=== PATIENT | female | born 1950 ===

== ENCOUNTER 2018-02-23 10:47 | Emergency (ER) | payer SELFPAY ==
[2018-02-23 10:49] VITALS: BMI 27.4
[2018-02-23] MEDS ORDERED: Hydrogen Peroxide 3% Soln (480ml) TP ONE (11:19)
[2018-02-23] MEDS ORDERED: Piperacillin/Tazobact 3.375 gm Inj IVPB ONE (12:23)
[2018-02-23] MEDS ORDERED: Vancomycin 1 g Inj ONE (12:23)
[2018-02-23] MEDS: Piperacillin/Tazobact 3.375 GM in Sodium Chloride 0.9% 100 ML IVPB STA ×2 (12:26→14:13)
--- NOTE | 2018-02-23 12:30 | ED PDOC ---
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 is homeless and they were called by a store environmental control administrator where pt. was lying in front of. Pt. states she called the police as her R leg was hurting. Pt. has hx of RLE cellulitis with ulcer. Pt. is requesting Morphine. Denies fever, trauma, chest pain, SOB. Past Medical History Reviewed: Historical Data, Nursing Documentation, Vital Signs - Medical History PMH: Anemia, Anxiety, Bronchitis, Depression, Diabetes, HTN, Schizophrenia, Chronic Pain (chronic right leg ulcers/cellulitis) Denies: Arthritis, CHF, COPD, Hepatitis, HIV, Hypercholesterolemia, Hypothyroidism, Chronic Kidney Disease, Rheumatoid Arthritis, Seizures, Sexually Transmitted Disease - Family History Family History: States: No Known Family Hx - Immunization History Hx Tetanus Toxoid Vaccination: No Hx Influenza Vaccination: No Hx Pneumococcal Vaccination: No - Home Medications Home Medications: Ambulatory Orders Medication Instructions Recorded RX: Ammonium Lactate 12% 1 applic TOP TID PRN #1 bottle 08/11/17 [Lac-Hydrin 12% Lotion (225 g)] RX: Citalopram [celeXA] 5 mg PO DAILY #30 tab 08/11/17 RX: Docusate Sodium/Sennosides A 2 tab PO HS #30 tab 08/11/17 [Senokot S 50 MG-8.6 MG] RX: Ferrous Sulfate [Feosol] 325 mg PO BID #60 tab 08/11/17 RX: OLANZapine [Zyprexa] 2.5 mg PO DAILY #30 tab 08/11/17 Amoxicillin/Potassium Clav 1 each PO BID #20 tablet 02/23/18 [Augmentin 500-125 Tablet] - Allergies Allergies/Adverse Reactions: Allergies Allergy/AdvReac Type Severity Reaction Status Date / Time No Known Allergies Allergy Verified 07/27/17 08:34 Review of Systems ROS Statement: Except As Marked, All Systems Reviewed And Found Negative Musculoskeletal: Positive for: Leg Pain Physical Exam - Physical Exam Appears: Positive for: Well, Non-toxic, In Acute Distress Skin: Positive for: Normal Color, Warm. Negative for: Rash Eye Exam: Positive for: Normal appearance Cardiovascular/Chest: Positive for: Regular Rate, Rhythm Respiratory: Positive for: CNT, Normal Breath Sounds Pulses-Dorsalis Pedis (L): 2+ Pulses-Dorsalis Pedis (R): 2+ Gastrointestinal/Abdominal: Positive for: Normal Exam, Soft. Negative for: Tenderness Extremity: Positive for: Other (R calf with circumferential swelling maceration with ulceration and mild surorunding erythema - yellow discharge noted - foul smelling odor) Neurologic/Psych: Positive for: Alert, Oriented. Negative for: Aphasia, Facial Droop - Laboratory Results Result Diagrams: 02/23/18 14:23 02/23/18 14:23 - Progress ED Course And Treament: Labs, Zosyn IV, Vancomycin IV, ativan 1mg IV ordered. Unable to obtain IV access. PICC line insertion ordered. Pt. evaluated by [facility] pod[facility] resident, who spoke with Dr. Hawkins and cleared pt. from podiatry standpoint. Requests that pt. be prescribed Augmentin. Case d/w Dr. Ambriz who agrees with plan and care. States pt. can be dc'd after 1 PRBC's. Blood transfusion ordered. Hemoccult: negative Case d/w Dr. Ha who also agrees with plan disposition. Disposition - Clinical Impression Clinical Impression: Cellulitis of lower extremity, Anemia - Patient ED Disposition Is Patient to be Admitted: Transfer of Care (Signed out Tiffanie GRACE pending re- evaluation after blood transfusion) - Disposition Referrals: Podiatry Clinic [Outside] Disposition Time: 20:00 Condition: FAIR Additional Instructions: SEGUIR CON LA CLNICA DE PODIATRA DEANA SIMONSA, jordan por dejarnos cuidar de ti hoy. Russo proveedor fue Floresita Ambriz MD y usted fue tratado por LEG PAIN. La atencin mdica de emergencia que recibi hoy se dirigi a selam sntomas agudos. Si le recetaron algn medicamento, llnelo y tmelo segn las indicaciones. Los sntomas pueden tardar varios gibson en resolverse. Regrese al Departamento de Emergencias si selam sntomas empeoran, no mejoran o si tiene otros problemas. Comunquese con russo mdico o llame a ronald de los mdicos / clnicas a los que jason sido referido que figuran en el formulario de Informacin de visita al paciente que se incluye en russo paquete de franny. Lleve con usted a russo consulta de seguimiento toda la documentacin que recibi del franny junto con los medicamentos que est tomando. Nuestro tratamiento no puede reemplazar la atencin mdica continua por parte de un proveedor de atencin primaria fuera del departamento de emergencias. [place] por permitir que el equipo de [facility] sea parte de russo atencin hoy. Si le hicieron joseluis radiografa o joseluis tomografa computarizada: un radilogo revisar la lectura del ED si se necesita algn cambio en el tratamiento, nos pondremos en contacto con usted. Si tuvo un cultivo de krzysztof, orina o herida: los resultados tardarn varios gibson; si es necesario realizar algn cambio en el tratamiento, nos pondremos en contacto con usted. Si se realiz joseluis prueba de ITS: los resultados demorarn 48 horas. Por favor llame despus de 1 semana si no jason recibido joseluis respuesta. Prescriptions: Amoxicillin/Potassium Clav [Augmentin 500-125 Tablet] 1 each PO BID #20 tablet Instructions: Cellulitis and Erysipelas (Skin Infections), Anemia of Chronic Disease, Blood Transfusion Forms: [employer] ([place]ese) Print Language: SYRIAC
[2018-02-23] MEDS ORDERED: Lidocaine 1% Inj (20ml) ONE (13:42)
--- NOTE | 2018-02-23 14:08 | PCM.SURG1 ---
Surgeon's Initial Post Op Note - Surgeon's Notes Surgeon: Tre Newell MD Software Test Automation Engineer: NONE Type of Anesthesia: Local Pre-Operative Diagnosis: Poor venous access Operative Findings: US showed patent right basilic vein. Post-Operative Diagnosis: Poor venous access Operation Performed: Single lumen picc right arm, 37 cM. Specimen/Specimens Removed: None Estimated Blood Loss: EBL {In ML}: 2 Blood Products Given: N/A Drains Used: No Drains Post-Op Condition: Fair Date of Surgery/Procedure: 02/23/18 Time of Surgery/Procedure: 14:05
[2018-02-23 14:28] LABS: BASO # 0.1 K/uL (0.0-0.2); BASO % 0.8 % (0.0-2.0); EOS # 0.1 K/uL (0.0-0.7); EOS % 0.7 % (0.0-4.0); HEMOGLOBIN 7.2 g/dL (12.0-16.0); LYMPH # 0.8 K/uL (1.0-4.3); LYMPH % 7.9 % (20.0-40.0); MEAN CORPUSCULAR HEMOGLOBIN 23.4 pg (27.0-31.0); MEAN CORPUSCULAR HGB CONC 31.2 g/dL (33.0-37.0); MEAN PLATELET VOLUME 8.6 fl (7.2-11.7); MONO # 0.6 K/uL (0.0-0.8); MONO % 5.8 % (0.0-10.0); NEUT # 8.1 K/uL (1.8-7.0); NEUT % 84.8 % (50.0-75.0); PLATELET COUNT 448 K/uL (130-400); RBC 3.07 Mil/uL (3.80-5.20); RED CELL DISTRIBUTION WIDTH 17.2 % (11.5-14.5); WHITE BLOOD COUNT 9.5 K/uL (4.8-10.8)
[2018-02-23 14:39] LABS: ALB/GLOB RATIO 0.9 (1.0-2.1); ALBUMIN 2.9 g/dL (3.5-5.0); CALCIUM 9.1 mg/dL (8.4-10.2)
[2018-02-23 14:57] LABS: VENOUS BLOOD GAS BASE EXCESS -3.2 mmol/L (0.0-2.0); VENOUS BLOOD GAS PCO2 39 mmHg (40-60); VENOUS BLOOD GAS PO2 31 mm/Hg (30-55); VENOUS BLOOD PH 7.36 (7.32-7.43)
[2018-02-23 15:04] LABS: BANDS 6 % (0-2); BASOPHIL 1 % (0-2); LYMPHOCYTE 6 % (20-50); METAMYELOCYTE 2 % (0-0); MONOCYTE 8 % (0-10); NEUTROPHIL 77 % (42-75); PLATELET ESTIMATE NORMAL (NORMAL); TOTAL CELLS COUNTED 100
[2018-02-23 15:05] LABS: ANISOCYTOSIS SLIGHT; HYPOCHROMIC SLIGHT; LARGE PLATELETS PRESENT; MICROCYTOSIS SLIGHT; OVALOCYTES MODERATE; TEARDROP CELLS SLIGHT
[2018-02-23] MEDS ORDERED: Povidone Iodine Topical 10% Sol ONE (15:15)
[2018-02-23 15:20] LABS: INR 1.1
[2018-02-23 15:23] LABS: PARTIAL THROMBOPLASTIN TIME 30.5 Seconds (25.6-37.1)
--- NOTE | 2018-02-23 15:51 | CP.PCM.CON ---
History of Present Illness - History of Present Illness History of Present Illness: Podiatry Consult Note for Dr. Hawkins: 67 yo female patient, seen and evaluated in ED for circumfrential ulceration to RLE. Per chart, patient was brought in to hospital by EMS a few hours ago. Patient denies pain to RLE. Unable to obtain full history from patient, patient is a poor historian. Review of Systems - Review of Systems Review of Systems: As per HPI Past Patient History - Infectious Disease Hx of Infectious Diseases: None - Tetanus Immunizations Tetanus Immunization: Unknown - Past Medical History & Family History Past Medical History?: Yes - Past Social History Smoking Status: Former Smoker - CARDIAC Hx Congestive Heart Failure: No Hx Hypercholesterolemia: No Hx Hypertension: Yes - PULMONARY Hx Bronchitis: Yes Hx Chronic Obstructive Pulmonary Disease (COPD): No - NEUROLOGICAL Hx Seizures: No - HEENT Hx HEENT Problems: No - RENAL Hx Chronic Kidney Disease: No - ENDOCRINE/METABOLIC Hx Hypothyroidism: No - HEMATOLOGICAL/ONCOLOGICAL Hx Anemia: Yes Hx Human Immunodeficiency Virus (HIV): No - INTEGUMENTARY Hx Dermatological Problems: Yes Hx Cellulitis: Yes (chronic) - MUSCULOSKELETAL/RHEUMATOLOGICAL Hx Arthritis: No Hx Rheumatoid Arthritis: No - GASTROINTESTINAL Hx Gastrointestinal Disorders: No - GENITOURINARY/GYNECOLOGICAL Hx Sexually Transmitted Disorders: No - PSYCHIATRIC Hx Anxiety: Yes Hx Depression: Yes Hx Schizophrenia: Yes - SURGICAL HISTORY Hx Surgeries: No - ANESTHESIA Hx Anesthesia: Yes Meds Allergies/Adverse Reactions: Allergies Allergy/AdvReac Type Severity Reaction Status Date / Time No Known Allergies Allergy Verified 07/27/17 08:34 Physical Exam - Constitutional Appears: Non-toxic, No Acute Distress - Extremities Exam Additional comments: Right LE focused exam: VASC: DP/PT pulses palpable 1/4. CFT <3 sec to all digits. Temp gradient mildly warm surrounding circumferential right leg wound. +1 pitting edema noted to dorsal foot DERM: Circumferential superficial ulceration noted to leg from tibial tuberosity extending to ankle joint. Wound bed is mixed fibrous and granular base. Malodor noted, improving. No purulence, fluctuance, probe to bone, tunneling, undermining, or tracking noted, no active drainage NEURO: Gross sensation intact ORTHO: Tenderness to palpation of ulceration site - Psychiatric Exam Psychiatric exam: Normal Affect Results - Vital Signs Recent Vital Signs: Last Vital Signs Temp 98.2 F 02/23/18 12:27 Pulse 88 02/23/18 12:27 Resp 18 02/23/18 12:27 BP 115/57 L 02/23/18 12:27 Pulse Ox 97 02/23/18 12:27 - Labs Result Diagrams: 02/23/18 14:23 02/23/18 14:23 Labs: Laboratory Results - last 24 hr 02/23/18 02/23/18 02/23/18 12:16 14:23 14:23 WBC 9.5 D RBC 3.07 L Hgb 7.2 L D Hct 23.0 L MCV 75.0 L D MCH 23.4 L MCHC 31.2 L RDW 17.2 H Plt Count 448 H D MPV 8.6 Neut % (Auto) 84.8 H Lymph % (Auto) 7.9 L [place] % (Auto) 5.8 Eos % (Auto) 0.7 Baso % (Auto) 0.8 Neut # (Auto) 8.1 H Lymph # (Auto) 0.8 L [place] # (Auto) 0.6 Eos # (Auto) 0.1 Baso # (Auto) 0.1 Neutrophils % (Manual) 77 H Band Neutrophils % 6 H Lymphocytes % (Manual) 6 L Monocytes % (Manual) 8 Basophils % (Manual) 1 Metamyelocytes % 2 H Platelet Estimate Normal Large Platelets Present Hypochromasia (manual) Slight Anisocytosis (manual) Slight Microcytosis (manual) Slight Macrocytosis (manual) Slight Tear Drop Cells Slight Ovalocytes Moderate PT INR APTT pO2 31 VBG pH 7.36 VBG pCO2 39 L VBG HCO3 21.9 VBG Total CO2 23.2 VBG O2 Sat (Calc) 60.9 VBG Base Excess -3.2 L VBG Potassium 3.3 L Sodium 142.0 143 Chloride 116.0 H 114 H Glucose 89 Lactate 0.8 FiO2 21.0 Potassium 3.5 L Carbon Dioxide 21 L Anion Gap 12 BUN 26 H Creatinine 1.1 Est GFR ( Amer) 60 Est GFR (Non-Af Amer) 49 Random Glucose 90 Calcium 9.1 Total Bilirubin 0.5 AST 25 ALT 25 Alkaline Phosphatase 95 Total Protein 6.1 L Albumin 2.9 L Globulin 3.2 Albumin/Globulin Ratio 0.9 L Venous Blood Potassium 3.3 L Blood Type Antibody Screen BBK History Checked 02/23/18 02/23/18 14:35 14:35 WBC RBC Hgb Hct MCV MCH MCHC RDW Plt Count MPV Neut % (Auto) Lymph % (Auto) [place] % (Auto) Eos % (Auto) Baso % (Auto) Neut # (Auto) Lymph # (Auto) [place] # (Auto) Eos # (Auto) Baso # (Auto) Neutrophils % (Manual) Band Neutrophils % Lymphocytes % (Manual) Monocytes % (Manual) Basophils % (Manual) Metamyelocytes % Platelet Estimate Large Platelets Hypochromasia (manual) Anisocytosis (manual) Microcytosis (manual) Macrocytosis (manual) Tear Drop Cells Ovalocytes PT 13.0 INR 1.1 APTT 30.5 pO2 VBG pH VBG pCO2 VBG HCO3 VBG Total CO2 VBG O2 Sat (Calc) VBG Base Excess VBG Potassium Sodium Chloride Glucose Lactate FiO2 Potassium Carbon Dioxide Anion Gap BUN Creatinine Est GFR ( Amer) Est GFR (Non-Af Amer) Random Glucose Calcium Total Bilirubin AST ALT Alkaline Phosphatase Total Protein Albumin Globulin Albumin/Globulin Ratio Venous Blood Potassium Blood Type O POSITIVE Antibody Screen Negative BBK History Checked Patient has bt Assessment & Plan - Assessment and Plan (Free Text) Assessment: 67 yo female patient, seen and evaluated in ED for circumfrential ulceration to RLE. Plan: Patient seen and evaluated WBC 9.5, VSS Local wound care to RLE: Betadine, 4x4, ABD, DSD PO Augmentin prescribed to patient Patient to follow up in clinic with Dr. Hawkins for continued treatment Thank you for the consult - Date & Time Date: 02/23/18 Time: 16:05
--- NOTE | 2018-02-23 16:28 | RAD ---
Date of service: 02/23/2018 PROCEDURE: Radiographs of the right tibia and fibula. HISTORY: pain COMPARISON: None available TECHNIQUE: Frontal and lateral views obtained. FINDINGS: BONES: Extensive osteopenia suggests osteoporosis throughout the right tibia and fibula and also the visualized distal femur. Periosteal changes are appreciated diffusely throughout the diaphysis of the tibia as well as the fibula pattern may reflect chronic osteomyelitis. Clinically correlate further. Heterogeneous soft tissue changes may indicate diffuse infectious process but no emphysematous change are identified grossly. Bandaging obscures fine bone and soft tissue detail at the mid to distal right leg. OTHER FINDINGS: None. IMPRESSION: Findings suspicious for chronic osteomyelitis of the right tibia and fibula. Follow-up MRI may be useful for further characterization. Extensive soft tissue heterogeneity may reflect infectious or inflammatory yes process. No emphysema soft tissue changes or definite retained radiodense foreign body.
[2018-02-23] MEDS ORDERED: Potassium Chloride 20 mEq ER Tab PO STA (16:45)
--- NOTE | 2018-02-23 17:36 | US ---
Date of service: 02/23/2018 PROCEDURE: Right lower extremity venous duplex Doppler. HISTORY: pain COMPARISON: None available. TECHNIQUE: Common femoral, superficial femoral, popliteal and posterior tibial veins were evaluated. Flow was assessed with color Doppler, compressibility, assessment of phasic flow and augmentation response. FINDINGS: COMMON FEMORAL VEIN: Unremarkable. SUPERFICIAL FEMORAL VEIN: Unremarkable. POPLITEAL VEIN: Unremarkable. POSTERIOR TIBIAL VEIN: Unremarkable. OTHER FINDINGS: Morphologically, unremarkable lymph node(s) IMPRESSION: No evidence of deep venous thrombosis in the right lower extremity.
[2018-02-23] MEDS ORDERED: Potassium Chloride 20 mEq ER Tab PO ONE ×2 (17:38→17:39)
--- NOTE | 2018-02-23 20:35 | ED PDOC ---
- Laboratory Results Result Diagrams: 02/23/18 14:23 02/23/18 14:23 - ECG O2 Sat by Pulse Oximetry: 99 (RA) Pulse Ox Interpretation: Normal Medical Decision Making Medical Decision Making: Case endorsed to chief writer, Tiffanie GRACE, at 1999 due to shift change. Pertinent details reviewed. Patient pending re-evaluation s/p transfusion. Labs reviewed. 220 Patient resting comfortably. Transfusion in process. 0 On exam, patient remains AAOx3, in no acute distress. Lungs clear to auscultation, cardiac RRR, abdomen soft, non-tender, repeat neuro exam shows no focal findings. VSS, stable for discharge. Lab/Diagnostic results d/w the patient in great detail. Diagnosis of lower extremity cellulitis, anemia d/w the patient. Based on history, exam and diagnostic results, plan will be for outpatient follow up. Patient instructed to follow-up with pmd / referral provided / the clinic in 1- 2 days without fail. Advised to take medication as prescribed. Return to the emergency room at any time for any new or worsening symptoms. Patient states she fully agrees with and understands discharge instructions. States that she agrees with the plan and disposition. Verbalized and repeated discharge instructions and plan. I have given the patient opportunity to ask any additional questions. Disposition Counseled Patient/Family Regarding: Studies Performed, Diagnosis, Need For Followup, Rx Given - Clinical Impression Clinical Impression: Cellulitis of lower extremity, Anemia - POA Present On Arrival: None - Disposition Referrals: Podiatry Clinic [Outside] Disposition: Routine/Home Disposition Time: 23:20 Condition: FAIR Additional Instructions: SEGUIR CON LA CLNICA DE PODIATRA DEANA SIMONSA, jordan por dejarnos cuidar de ti hoy. Russo proveedor fue Floresita Ambriz MD y usted fue tratado por LEG PAIN. La atencin mdica de emergencia que recibi hoy se dirigi a selam sntomas agudos. Si le recetaron algn medicamento, llnelo y tmelo segn las indicaciones. Los sntomas pueden tardar varios gibson en resolverse. Regrese al Departamento de Emergencias si selam sntomas empeoran, no mejoran o si tiene otros problemas. Comunquese con russo mdico o llame a ronald de los mdicos / clnicas a los que jason sido referido que figuran en el formulario de Informacin de visita al paciente que se incluye en russo paquete de franny. Lleve con usted a russo consulta de seguimiento toda la documentacin que recibi del franny junto con los medicamentos que est tomando. Nuestro tratamiento no puede reemplazar la atencin mdica continua por parte de un proveedor de atencin primaria fuera del departamento de emergencias. [place] por permitir que el equipo de [facility] sea parte de russo atencin hoy. Si le hicieron joseluis radiografa o joseluis tomografa computarizada: un radilogo revisar la lectura del ED si se necesita algn cambio en el tratamiento, nos pondremos en contacto con usted. Si tuvo un cultivo de krzysztof, orina o herida: los resultados tardarn varios d as; si es necesario realizar algn cambio en el tratamiento, nos pondremos en contacto con usted. Si se realiz joseluis prueba de ITS: los resultados demorarn 48 horas. Por favor llame despus de 1 semana si no jason recibido joseluis respuesta. Prescriptions: Amoxicillin/Potassium Clav [Augmentin 500-125 Tablet] 1 each PO BID #20 tablet Instructions: Cellulitis and Erysipelas (Skin Infections), Anemia of Chronic Disease, Blood Transfusion Forms: [employer] (Kiswahili) Print Language: SAUDI ARABIAN Results - Lab Results Lab Results: 02/23/18 02/23/18 02/23/18 17:16 14:35 14:35 WBC RBC Hgb Hct MCV MCH MCHC RDW Plt Count MPV Neut % (Auto) Lymph % (Auto) [place] % (Auto) Eos % (Auto) Baso % (Auto) Neut # (Auto) Lymph # (Auto) [place] # (Auto) Eos # (Auto) Baso # (Auto) Neutrophils % (Manual) Band Neutrophils % Lymphocytes % (Manual) Monocytes % (Manual) Basophils % (Manual) Metamyelocytes % Platelet Estimate Large Platelets Hypochromasia (manual) Anisocytosis (manual) Microcytosis (manual) Macrocytosis (manual) Tear Drop Cells Ovalocytes PT 13.0 INR 1.1 APTT 30.5 pO2 VBG pH VBG pCO2 VBG HCO3 VBG Total CO2 VBG O2 Sat (Calc) VBG Base Excess VBG Potassium Sodium Chloride Glucose Lactate FiO2 Potassium Carbon Dioxide Anion Gap BUN Creatinine Est GFR ( Amer) Est GFR (Non-Af Amer) Random Glucose Calcium Total Bilirubin AST ALT Alkaline Phosphatase Total Protein Albumin Globulin Albumin/Globulin Ratio Venous Blood Potassium Stool Occult Blood Negative Blood Type O POSITIVE Antibody Screen Negative Crossmatch See Detail BBK History Checked Patient has bt 02/23/18 02/23/18 02/23/18 14:23 14:23 12:16 WBC 9.5 D RBC 3.07 L Hgb 7.2 L D Hct 23.0 L MCV 75.0 L D MCH 23.4 L MCHC 31.2 L RDW 17.2 H Plt Count 448 H D MPV 8.6 Neut % (Auto) 84.8 H Lymph % (Auto) 7.9 L [place] % (Auto) 5.8 Eos % (Auto) 0.7 Baso % (Auto) 0.8 Neut # (Auto) 8.1 H Lymph # (Auto) 0.8 L [place] # (Auto) 0.6 Eos # (Auto) 0.1 Baso # (Auto) 0.1 Neutrophils % (Manual) 77 H Band Neutrophils % 6 H Lymphocytes % (Manual) 6 L Monocytes % (Manual) 8 Basophils % (Manual) 1 Metamyelocytes % 2 H Platelet Estimate Normal Large Platelets Present Hypochromasia (manual) Slight Anisocytosis (manual) Slight Microcytosis (manual) Slight Macrocytosis (manual) Slight Tear Drop Cells Slight Ovalocytes Moderate PT INR APTT pO2 31 VBG pH 7.36 VBG pCO2 39 L VBG HCO3 21.9 VBG Total CO2 23.2 VBG O2 Sat (Calc) 60.9 VBG Base Excess -3.2 L VBG Potassium 3.3 L Sodium 143 142.0 Chloride 114 H 116.0 H Glucose 89 Lactate 0.8 FiO2 21.0 Potassium 3.5 L Carbon Dioxide 21 L Anion Gap 12 BUN 26 H Creatinine 1.1 Est GFR ( Amer) 60 Est GFR (Non-Af Amer) 49 Random Glucose 90 Calcium 9.1 Total Bilirubin 0.5 AST 25 ALT 25 Alkaline Phosphatase 95 Total Protein 6.1 L Albumin 2.9 L Globulin 3.2 Albumin/Globulin Ratio 0.9 L Venous Blood Potassium 3.3 L Stool Occult Blood Blood Type Antibody Screen Crossmatch BBK History Checked
[2018-02-24 00:12] VITALS: PULSE 88
[2018-02-24 06:04] VITALS: BP 112/76; RESP 16; TEMP 97.8; O2SAT 95
--- NOTE | 2018-02-26 10:43 | ED PDOC ---
ED Additional Note - Date & Time of Evaluation Date of Evaluation: 02/26/18 - Physician Additional Note Physician Additional Note: Lab results reviewed from recent wound and blood cultures done in ER on 02/23/18. Patient was discharged with Augment for infected wound but C&S shows resistance to penicillins. Letter to be sent to address on file for patient to return to ER for lab results and new prescritiopn as no phone number available.
== END 2018-02-24 05:55 | disposition home or self-care (01) ==
LOC: H.ER 10:47
DX: L03.119 Cellulitis of unspecified part of limb (principal); D64.9 Anemia, unspecified; Z59.0 Homelessness; E11.622 Type 2 diabetes mellitus with other skin ulcer; Z86.59 Personal history of other mental and behavioral disorders; G89.29 Other chronic pain; I10 Essential (primary) hypertension; L97.919 Non-pressure chronic ulcer of unspecified part of right lower leg with unspecified severity; Z87.891 Personal history of nicotine dependence
CPT/HCPCS: 36430; 36569; 73590; 76937; 77001; 80053; 82803; 85025; 85610; 85730; 86850; 86900; 86920; 87040; 87070; 87181; 93971; 96365; 96366; 96367; 96372; 99284; A4310; C1751; G0328; J2060; J2543; P9051

== ENCOUNTER 2018-02-24 09:20 | Emergency (ER) | payer SELFPAY ==
[2018-02-24 09:20] VITALS: BMI 27.4
[2018-02-24 09:29] VITALS: RESP 18; TEMP 97.9; O2SAT 100
--- NOTE | 2018-02-24 14:07 | ED PDOC ---
Lower Extremity Pain/Injury Time Seen by Provider: 02/24/18 09:21 Chief Complaint (Nursing): Lower Extremity Problem/Injury Past Medical History Vital Signs: Last Vital Signs Temp 97.9 F 02/24/18 09:28 Pulse 80 02/24/18 09:28 Resp 18 02/24/18 09:28 BP 134/72 02/24/18 09:28 Pulse Ox 100 02/24/18 09:28 - Medical History PMH: Anemia, Anxiety, Bronchitis, Depression, Diabetes, HTN, Schizophrenia, Chronic Pain (chronic right leg ulcers/cellulitis) Denies: Arthritis, CHF, COPD, Hepatitis, HIV, Hypercholesterolemia, Hypothyroidism, Chronic Kidney Disease, Rheumatoid Arthritis, Seizures, Sexually Transmitted Disease - Family History Family History: States: Unknown Family Hx - Immunization History Hx Tetanus Toxoid Vaccination: No Hx Influenza Vaccination: No Hx Pneumococcal Vaccination: No - Home Medications Home Medications: Ambulatory Orders Medication Instructions Recorded Ammonium Lactate 12% [Lac-Hydrin 1 applic TOP TID PRN #1 bottle 08/11/17 12% Lotion (225 g)] Citalopram [celeXA] 5 mg PO DAILY #30 tab 08/11/17 Docusate Sodium/Sennosides A 2 tab PO HS #30 tab 08/11/17 [Senokot S 50 MG-8.6 MG] Ferrous Sulfate [Feosol] 325 mg PO BID #60 tab 08/11/17 OLANZapine [Zyprexa] 2.5 mg PO DAILY #30 tab 08/11/17 Amoxicillin/Potassium Clav 1 each PO BID #20 tablet 02/23/18 [Augmentin 500-125 Tablet] - Allergies Allergies/Adverse Reactions: Allergies Allergy/AdvReac Type Severity Reaction Status Date / Time No Known Allergies Allergy Verified 07/27/17 08:34 - ECG O2 Sat by Pulse Oximetry: 100 Disposition - Clinical Impression Clinical Impression: Leg pain - Disposition Referrals: Podiatry Clinic [Outside] Condition: STABLE Additional Instructions: DEANA JORGE, thank you for letting us take care of you today. Your provider was Piero Ozuna MD and you were treated for RT LEG PAIN. The emergency medical care you received today was directed at your acute symptoms. If you were prescribed any medication, please fill it and take as directed. It may take several days for your symptoms to resolve. Return to the Emergency Department if your symptoms worsen, do not improve, or if you have any other problems. Please contact your doctor or call one of the physicians/clinics you have been referred to that are listed on the Patient Visit Information form that is included in your discharge packet. Bring any paperwork you were given at discharge with you along with any medications you are taking to your follow up visit. Our treatment cannot replace ongoing medical care by a primary care provider outside of the emergency department. Thank you for allowing the [facility] team to be part of your care today. If you had an X-Ray or CT scan: A Radiologist will review the ED reading if any change in treatment is needed we will contact you. If you had a blood, urine, or wound culture: It will take several days for the results, if any change in treatment is needed we will contact you. If you had an STI test: It will take 48 hours for the results. Please call after 1 week if you have not heard back. Instructions: Muscle and Bone Pain (DC) Forms: [employer] (Malay)
--- NOTE | 2018-02-24 14:11 | ED PDOC ---
Lower Extremity Pain/Injury Time Seen by Provider: 02/24/18 09:21 Chief Complaint (Nursing): Lower Extremity Problem/Injury Chief Complaint (Provider): Lower Extremity Problem/Injury History Per: Patient History/Exam Limitations: no limitations Current Symptoms Are (Timing): Still Present Additional Complaint(s): 67 year old female with a history of chronic right leg cellulitis and ulcers pre sents to the ED because she is unable to bear weight on right lower extremity. Of note, patient was seen by this provider yesterday for the same complaint and was discharged after getting a blood transfusion and being cleared by podiatry. As per ED staff, patient was discharged in the morning today and has stayed in the ED waiting room. There are no known falls or trauma. She denies weakness, chest pain or fever. PMD: none provided Past Medical History Reviewed: Historical Data, Nursing Documentation, Vital Signs Vital Signs: Last Vital Signs Temp 97.9 F 02/24/18 09:28 Pulse 80 02/24/18 09:28 Resp 18 02/24/18 09:28 BP 134/72 02/24/18 09:28 Pulse Ox 100 02/24/18 09:28 - Medical History PMH: Anemia, Anxiety, Bronchitis, Depression, Diabetes, HTN, Schizophrenia, Chronic Pain (chronic right leg ulcers/cellulitis) Denies: Arthritis, CHF, COPD, Hepatitis, HIV, Hypercholesterolemia, Hypothyroidism, Chronic Kidney Disease, Rheumatoid Arthritis, Seizures, Sexually Transmitted Disease - Family History Family History: States: Unknown Family Hx - Immunization History Hx Tetanus Toxoid Vaccination: No Hx Influenza Vaccination: No Hx Pneumococcal Vaccination: No - Home Medications Home Medications: Ambulatory Orders Medication Instructions Recorded RX: Ammonium Lactate 12% 1 applic TOP TID PRN #1 bottle 08/11/17 [Lac-Hydrin 12% Lotion (225 g)] RX: Citalopram [celeXA] 5 mg PO DAILY #30 tab 08/11/17 RX: Docusate Sodium/Sennosides A 2 tab PO HS #30 tab 08/11/17 [Senokot S 50 MG-8.6 MG] RX: Ferrous Sulfate [Feosol] 325 mg PO BID #60 tab 08/11/17 RX: OLANZapine [Zyprexa] 2.5 mg PO DAILY #30 tab 08/11/17 Amoxicillin/Potassium Clav 1 each PO BID #20 tablet 02/23/18 [Augmentin 500-125 Tablet] - Allergies Allergies/Adverse Reactions: Allergies Allergy/AdvReac Type Severity Reaction Status Date / Time No Known Allergies Allergy Verified 07/27/17 08:34 Review of Systems ROS Statement: Except As Marked, All Systems Reviewed And Found Negative Musculoskeletal: Positive for: Leg Pain (right) Physical Exam - Reviewed Nursing Documentation Reviewed: Yes Vital Signs Reviewed: Yes - Physical Exam Appears: Positive for: No Acute Distress Cardiovascular/Chest: Positive for: Regular Rate, Rhythm. Negative for: Murmur Respiratory: Positive for: Normal Breath Sounds Extremity: Positive for: Other (right leg is in a dry dressing, patient is able to bear weight on right lower extremity) Neurologic/Psych: Positive for: Alert, Oriented, Gait (slow but steady with cane) - ECG O2 Sat by Pulse Oximetry: 100 (RA) Pulse Ox Interpretation: Normal Medical Decision Making Medical Decision Making: Time: 929 Initial Impression: Leg pain malingering Case d/w Dr. Ozuna who agrees with plan. --Patient was given a meal and a new cane in the ED Scribe Attestation: Documented by Kayli Jackson, acting as a scribe for Richard Ruelas PA-C Provider Scribe Attestation: All medical record entries made by the Scribe were at my direction and personally dictated by me. I have reviewed the chart and agree that the record accurately reflects my personal performance of the history, physical exam, medical decision making, and the department course for this patient. I have also personally directed, reviewed, and agree with the discharge instructions and disposition. Disposition - Clinical Impression Clinical Impression: Leg pain - Patient ED Disposition Is Patient to be Admitted: No - Disposition Referrals: Podiatry Clinic [Outside] Disposition: Routine/Home Disposition Time: 13:00 Condition: STABLE Additional Instructions: DEANA JORGE, thank you for letting us take care of you today. Your provider was Piero Ozuna MD and you were treated for RT LEG PAIN. The emergency medical care you received today was directed at your acute symptoms. If you were prescribed any medication, please fill it and take as directed. It may take several days for your symptoms to resolve. Return to the Emergency Department if your symptoms worsen, do not improve, or if you have any other problems. Please contact your doctor or call one of the physicians/clinics you have been referred to that are listed on the Patient Visit Information form that is included in your discharge packet. Bring any paperwork you were given at dischar ge with you along with any medications you are taking to your follow up visit. Our treatment cannot replace ongoing medical care by a primary care provider outside of the emergency department. Thank you for allowing the [facility] team to be part of your care today. If you had an X-Ray or CT scan: A Radiologist will review the ED reading if any change in treatment is needed we will contact you. If you had a blood, urine, or wound culture: It will take several days for the results, if any change in treatment is needed we will contact you. If you had an STI test: It will take 48 hours for the results. Please call after 1 week if you have not heard back. Instructions: Muscle and Bone Pain (DC) Forms: [facility] ([place])
[2018-02-24 15:42] VITALS: BP 130/68; PULSE 76
== END 2018-02-24 14:30 | disposition home or self-care (01) ==
LOC: H.ER 09:20
DX: Z76.5 Malingerer [conscious simulation] (principal); E11.9 Type 2 diabetes mellitus without complications; Z86.59 Personal history of other mental and behavioral disorders; G89.29 Other chronic pain; I10 Essential (primary) hypertension

== ENCOUNTER 2018-02-27 06:22 | Emergency (ER) | payer SELFPAY ==
[2018-02-27 06:30] VITALS: BMI 22.9
[2018-02-27 06:36] VITALS: RESP 18
--- NOTE | 2018-02-27 07:50 | ED PDOC ---
HPI: Wound Care - HPI Time Seen by Provider: 02/27/18 07:07 Chief Complaint (Nursing): Lower Extremity Problem/Injury Chief Complaint (Provider): Lower Extremity Problem/Injury History Per: Patient Exam Limitations: no limitations Onset/Duration Of Symptoms: Persistent Current Symptoms Are (Timing): Still Present Additional Complaint(s): 67 year old female with pmHx of HTN and DM, presents to ED requesting clean dressings for her chronic right leg ulcers as it has become wet. Of note, patient has right leg and foot with yellow liquid-soaked dressings wrapped in plastic bags, otherwise, offers no further medical complaints. PCP: none provided Past Medical History Reviewed: Historical Data, Nursing Documentation, Vital Signs Vital Signs: Last Vital Signs Temp 97.8 F 02/27/18 06:30 Pulse 76 02/27/18 06:30 Resp 18 02/27/18 06:30 BP 135/60 02/27/18 06:30 Pulse Ox 100 02/27/18 06:30 - Medical History PMH: Anemia, Anxiety, Bronchitis, Depression, Diabetes, HTN, Schizophrenia, Chronic Pain (chronic right leg ulcers/cellulitis) Denies: Arthritis, CHF, COPD, Hepatitis, HIV, Hypercholesterolemia, Hypothyroidism, Chronic Kidney Disease, Rheumatoid Arthritis, Seizures, Sexually Transmitted Disease - Family History Family History: States: Unknown Family Hx - Immunization History Hx Tetanus Toxoid Vaccination: No Hx Influenza Vaccination: No Hx Pneumococcal Vaccination: No - Home Medications Home Medications: Ambulatory Orders Medication Instructions Recorded Ammonium Lactate 12% [Lac-Hydrin 1 applic TOP TID PRN #1 bottle 08/11/17 12% Lotion (225 g)] Citalopram [celeXA] 5 mg PO DAILY #30 tab 08/11/17 Docusate Sodium/Sennosides A 2 tab PO HS #30 tab 08/11/17 [Senokot S 50 MG-8.6 MG] Ferrous Sulfate [Feosol] 325 mg PO BID #60 tab 08/11/17 OLANZapine [Zyprexa] 2.5 mg PO DAILY #30 tab 08/11/17 Amoxicillin/Potassium Clav 1 each PO BID #20 tablet 02/23/18 [Augmentin 500-125 Tablet] - Allergies Allergies/Adverse Reactions: Allergies Allergy/AdvReac Type Severity Reaction Status Date / Time No Known Allergies Allergy Verified 02/27/18 06:29 Review of Systems ROS Statement: Except As Marked, All Systems Reviewed And Found Negative Musculoskeletal: Positive for: Foot Pain (chronic right-sided ulcers) Physical Exam - Reviewed Nursing Documentation Reviewed: Yes Vital Signs Reviewed: Yes - Physical Exam Appears: Positive for: Non-toxic, No Acute Distress Head Exam: Positive for: ATRAUMATIC Skin: Positive for: Warm, Dry Eye Exam: Positive for: EOMI Respiratory: Positive for: Normal Breath Sounds Extremity: Positive for: Normal ROM (lower), Other (right leg with wet dressings in place, chronic leg ulcers) Neurologic/Psych: Positive for: Alert, Oriented - ECG O2 Sat by Pulse Oximetry: 100 (RA) Pulse Ox Interpretation: Normal Medical Decision Making Medical Decision Making: Initial Impression: Initial Plan: * Wound dressing change Dressing changed by podiatry service. Patient refused betadine dressing. Dry dressing was applied. Scribe Attestation: Documented by Ila Youssef, acting as a scribe for Doug Park MD. Provider Scribe Attestation: All medical record entries made by the Scribe were at my direction and personally dictated by me. I have reviewed the chart and agree that the record accurately reflects my personal performance of the history, physical exam, medical decision making, and the department course for this patient. I have also personally directed, reviewed, and agree with the discharge instructions and disposition. Disposition - Clinical Impression Clinical Impression: Chronic ulcer of leg - Patient ED Disposition Is Patient to be Admitted: No Counseled Patient/Family Regarding: Studies Performed, Diagnosis - Disposition Referrals: Podiatry Clinic [Outside] Disposition: Routine/Home Disposition Time: 11:07 Condition: GOOD Additional Instructions: DEANA JORGE, thank you for letting us take care of you today. Your provider was Doug Park MD and you were treated for RIGHT LEG PAIN. The emergency medical care you received today was directed at your acute symptoms. If you were prescribed any medication, please fill it and take as directed. It may take several days for your symptoms to resolve. Return to the Emergency Department if your symptoms worsen, do not improve, or if you have any other problems. Please contact your doctor or call one of the physicians/clinics you have been referred to that are listed on the Patient Visit Information form that is included in your discharge packet. Bring any paperwork you were given at discharge with you along with any medications you are taking to your follow up visit. Our treatment cannot replace ongoing medical care by a primary care provider outside of the emergency department. Thank you for allowing the [facility] team to be part of your care today. If you had an X-Ray or CT scan: A Radiologist will review the ED reading if any change in treatment is needed we will contact you. If you had a blood, urine, or wound culture: It will take several days for the results, if any change in treatment is needed we will contact you. If you had an STI test: It will take 48 hours for the results. Please call after 1 week if you have not heard back. Instructions: Wound Care (DC) Print Language: FRISIAN
[2018-02-27] MEDS ORDERED: Povidone Iodine Topical 10% Sol ONE (10:20)
[2018-02-27 16:08] VITALS: BP 130/78; PULSE 69; TEMP 98; O2SAT 98
== END 2018-02-27 16:09 | disposition home or self-care (01) ==
LOC: H.ER 06:22
DX: L97.915 Non-pressure chronic ulcer of unspecified part of right lower leg with muscle involvement without evidence of necrosis (principal); E11.621 Type 2 diabetes mellitus with foot ulcer; I10 Essential (primary) hypertension